=== PATIENT | female | born 1980 | race African-American/Black ===

== ENCOUNTER 2021-10-11 22:23 | Emergency (ER) | payer SELFPAY ==
[~2021-10-11] VITALS: Ht 152.4 cm; Wt 47.5 kg
[2021-10-11] MEDS ORDERED: TETANUS AND DIPHTHERIA TOX/PF 0.5 ML DISP.SYRIN. VAX IM ONE ×2 (22:36→22:41)
[2021-10-11 22:50] VITALS: BP 158/103
[2021-10-11 22:51] LABS: BASO % 1 % (0-3); EOS # 0.1 x10^3/uL (0.0-0.7); EOS % 1 % (0-3); HEMATOCRIT 33.4 % (36.0-47.0); LYMPH # 4.1 x10^3/uL (1.0-4.8); LYMPH % 67 % (24-48); MEAN CORPUSCULAR HEMOGLOBIN 31 pg (25-35); MEAN CORPUSCULAR HGB CONC 33 g/dL (31-37); MEAN CORPUSCULAR VOLUME 94 fL (79-100); MONO # 0.9 x10^3/uL (0.0-1.1); MONO % 14 % (0-9); NEUT # 1.1 x10^3/uL (1.8-7.7); NEUT % 17 % (31-73); PLATELET COUNT 173 x10^3/uL (140-400); RED BLOOD COUNT 3.56 x10^6/uL (3.50-5.40); WHITE BLOOD COUNT 6.2 x10^3/uL (4.0-11.0)
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
[2021-10-11] MEDS ORDERED: IV NORMAL SALINE 1000ML BAG 1,000 ML IV ONE ×2 (23:00)
[2021-10-11] MEDS ORDERED: IV NORMAL SALINE 1000ML BAG 1,000 ML IV SCH (23:00)
[2021-10-11] MEDS ORDERED: IOHEXOL 300 MG/ML 100ML VIAL. IV ONE (23:00)
[2021-10-11] MEDS ORDERED: CONTRAST GIVEN. MC PRN (23:00)
[2021-10-11] MEDS ORDERED: fentaNYL PF VIAL 100 MCG/2 ML VIAL IVP ONE ×2 (23:00)
[2021-10-11] MEDS ORDERED: DIPHTH,PERTUSS(ACELL),TET TOX 0.5 ML DISP.SYRIN. VAX IM ONE (23:00)
[2021-10-11 23:01] LABS: PROTHROMBIN TIME PATIENT 13.8 SEC (11.7-14.0)
[2021-10-11 23:02] LABS: PREG TEST PT QUAL NEGATIVE (NEG)
[2021-10-11 23:03] LABS: CALCIUM 7.9 mg/dL (8.5-10.1); CREATININE 0.9 mg/dL (0.6-1.0); GFR 84.3; POTASSIUM 3.1 mmol/L (3.5-5.1)
[2021-10-11 23:09] LABS: ALBUMIN 3.3 g/dL (3.4-5.0); ALBUMIN/GLOBULIN RATIO 0.9 (1.0-1.7); TOTAL BILIRUBIN 0.2 mg/dL (0.2-1.0); TOTAL PROTEIN 6.9 g/dL (6.4-8.2)
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
[2021-10-12 04:27] LABS: % ATYL 6 % (0-0); % EOS 1 % (0-5); % LYMPHS 68 % (24-48); % MONOS 6 % (0-10); % SEGS 19 % (35-66); PLT ESTIMATE ADEQUATE (ADEQUATE)
== END 2021-10-11 23:00 | disposition short-term general hospital (02) ==
LOC: ER 22:23 → EEVIPCON 22:23 → ER 23:00
DX: S21.231A Puncture wound without foreign body of right back wall of thorax without penetration into thoracic cavity, initial encounter (principal); X58.XXXA Exposure to other specified factors, initial encounter; Y93.89 Activity, other specified; Y92.89 Other specified places as the place of occurrence of the external cause; Y99.8 Other external cause status
CPT/HCPCS: 36415; 71045; 72170; 80053; 83690; 84703; 85007; 85025; 85610; 85730; 90471; 90715; 96361; 96374; 99291; G0390; G0480; J3010; J7030